=== PATIENT | female | born 2000 | race Caucasian/White ===

== ENCOUNTER 2020-10-14 13:44 | Emergency (ER) | payer BC ==
[2020-10-14] MEDS ORDERED: Ketorolac Tromethamine 30 MG/ML VIAL ONE (15:29)
== END 2020-10-14 15:48 | disposition home or self-care (01) ==
LOC: CSHERS 13:44
DX: M54.2 Cervicalgia (principal); F17.290 Nicotine dependence, other tobacco product, uncomplicated
CPT/HCPCS: 96372; 99283; J1885

== ENCOUNTER 2020-10-16 11:41 | Emergency (ER) | payer BC | END 2020-10-16 13:26 | disposition home or self-care (01) | LOC: CSHERS 11:41 | DX: R53.1 Weakness (principal); H51.8 Other specified disorders of binocular movement; F17.290 Nicotine dependence, other tobacco product, uncomplicated | CPT/HCPCS: 70450 ==

== ENCOUNTER 2021-04-17 14:17 | Emergency (ER) | payer BC ==
[2021-04-17 16:10] LABS: Bilirubin Neg (Negative); Blood, Urine 10 (Negative); Clarity Clear (Clear); Glucose, Urine (Dipstick) Normal (Negative); Ketone, Urine Negative (Negative); Leukocyte Negative (Negative); Nitrite Negative (Negative); Protein, Urine (Dipstick) 15 mg/dl (Neg-Trace); Specific Gravity, Urine 1.015 (1.002-1.036); Urobilinogen Normal mg/dL (Less than 2)
[2021-04-17 16:12] LABS: Pregnancy Test - Urine (BHCG) Negative (Negative); Pregu Control Background? CLEAR/WHITE (CLR/WHITE); Pregu Control Bar Appear? YES (CONTROL BAR); Specific Gravity 1.015 (1.002-1.036)
[2021-04-17 16:22] LABS: Bacteria/HPF 1+ HPF (None Seen); Mucous/LPF 1+ LPF (<2+); Squamous Epithelial 0-3 HPF (0-3); WBC/HPF 0-3 HPF (0-3)
== END 2021-04-17 17:08 | disposition home or self-care (01) ==
LOC: CSHERS 14:17
DX: E86.0 Dehydration (principal); F17.290 Nicotine dependence, other tobacco product, uncomplicated
CPT/HCPCS: 81003; 81015; 81025; 99283